=== PATIENT | female | born 1980 | race Caucasian/White ===

== ENCOUNTER 2017-07-06 06:15 | Emergency (ER) | payer SELFPAY ==
[2017-07-06] MEDS ORDERED: Acetaminophen 325 MG Tab PO ONE (06:49)
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
[2017-07-06] MEDS ORDERED: Cyclobenzaprine 10 MG Tab PO ONE (08:21)
== END 2017-07-06 08:45 | disposition home or self-care (01) ==
LOC: VM.ED 06:15
DX: S29.012A Strain of muscle and tendon of back wall of thorax, initial encounter (principal); V49.9XXA Car occupant (driver) (passenger) injured in unspecified traffic accident, initial encounter; Y92.411 Interstate highway as the place of occurrence of the external cause
CPT/HCPCS: 71045; 72020; 80047; 85025; 85610; 85730; 99285; A9270-GY